=== PATIENT | female | born 1985 | race African-American/Black ===

== ENCOUNTER → 2020-02-04 13:01 | Outpatient (CLI) | payer OTHER, SELFPAY ==
--- NOTE | 2020-02-04 | DI.MRI.S_ITS ---
PROCEDURE: MR PELVIS WO CON INDICATIONS: Pelvic and perineal pain TECHNIQUE: Coronal HASTE, sagittal breath-hold T2 FSE; axial T1 FSE with and without fat saturation through the pelvis. Optional long- and short-axis uterine nonbreath-hold T2 FSE through the uterus. The patient declined to proceed with the contrast enhanced portion of the study. COMPARISON: None. FINDINGS: Image quality: Excellent. Uterus: Uterus is retroverted and is normal in size. Endometrium is normal in thickness. Junctional zone is normal in thickness at 12 mm or less. Adnexa: Both ovaries are normal in size, without suspicious solid lesions. Note is made of a fluid signal ovoid structure at the left adnexa, measuring up to 2.4 cm AP, 2.7 cm transverse and 3.8 cm craniocaudad. This contains 1 thin internal septation. Urinary system: Bladder wall is normal in thickness. Distal ureters are non distended. Urethra appears normal in morphology. Nodes and vessels: No pelvic or inguinal adenopathy by size criteria. Iliac vessels are normal in size. Bowel and peritoneum: No pathologic free pelvic fluid. Inferior colon and small bowel loops are normal in caliber. Soft tissues: No inguinal hernias. No findings of pelvic floor incompetence in the absence of provocation. Bones: Marrow demonstrates normal overall signal. IMPRESSION: A cystic structure is present at the left adnexa, likely ovarian in origin, with fluid signal character and a thin internal single septation. Overall this structure measures up to 2.4 x 2.7 x 3.8 cm. The uterus is retroflexed, no abnormal free fluid is seen. No internal or pelvic floor herniation is identified. Source of reported chronic pelvic pain is not found. Dictated by: Jose Alejandro Katz M.D. on 02/04/2020 at 14:24 Approved by: Jose Alejandro Katz M.D. on 02/04/2020 at 14:28
== END ==
PROVIDERS: Referring Provider Obstetrics & Gynecology; Visit Provider Obstetrics & Gynecology
DX: R10.2 Pelvic and perineal pain (principal)
CPT/HCPCS: 72195

== ENCOUNTER 2020-05-27 16:39 | Emergency (ER) | payer OTHER, SELFPAY ==
[2020-05-27 16:45] VITALS: BP 153/97; PULSE 98; RESP 16; TEMP 37; O2SAT 98; BMI 30.4
--- NOTE | 2020-05-27 16:51 | ED.GENADULT ---
HPI - General Adult General Chief complaint: Upper Respiratory Symptoms Stated complaint: states chronic sinus infection, post nasal drip Time Seen by Provider: 05/27/20 16:41 Source: patient Mode of arrival: Ambulatory Limitations: no limitations History of Present Illness HPI narrative: 35-year-old female who states she has a longstanding history of sinus issues here for evaluation of the start of her sinus pain. She states that it is worse when she is laying down. Has been taking [id number] decongestants. No fevers. Also has had a cough. States that normally she develops bronchitis when her symptoms progress worse and she is here trying to ?get ahead of the infection ? Related Data Previous Rx's Medication Instructions Recorded amoxicillin-pot clavulanate 1 tab PO BID 5 Days #10 tab 05/27/20 [Augmentin] Allergies Allergy/AdvReac Type Severity Reaction Status Date / Time tramadol [From Ultram] Allergy Severe Unconscious Verified 05/27/20 16:47 Review of Systems Constitutional Constitutional: Denies fever(s) and Denies headache(s) Eyes Eyes: Denies change in vision ENT Ears, Nose, Mouth, and Throat: Reports facial pain, Denies headache(s) and Reports sinus pressure Comments: Postnasal drip Cardiovascular Cardiovascular: Denies dyspnea Respiratory Respiratory: Denies dyspnea Integumentary/Breasts Skin/Breast: Denies lesions and Denies rash Neurologic Neurologic: Denies headache(s) Hematologic/Lymphatic Hematologic/Lymphatic: Denies easy bleeding and Denies easy bruising Patient History Medical History Healthy adult Social History Smoking Status: Never smoker Smoking Status: Never smoker Substance Use Type: does not use Exam Initial Vital Signs Initial Vital Signs: Vital Signs Temperature 98.6 F 05/27/20 16:45 Pulse Rate 98 H 05/27/20 16:45 Respiratory Rate 16 05/27/20 16:45 Blood Pressure 153/97 H 05/27/20 16:45 Pulse Oximetry 98 05/27/20 16:45 Const General: cooperative, comfortable and well developed Limitations: mental status not altered HENMT Ears: TM's normal bilaterally Nose: external nose normal Face and sinus: sinuses nontender Mouth: oral mucosae normal Resp Effort & Inspection: normal respiratory effort Auscultation: clear to auscultation bilaterally Cardio Rate: regular rate Skin Lesions: no lesions Rashes: no rashes Neuro General: patient alert and patient awake Cognition: normal cognition Speech: speech normal Extrem General: normal to inspection and capillary refill normal Psych Appearance: grossly normal and well kempt Course Vital Signs Vital signs: Vital Signs - 8 hr 05/27/20 16:45 Temperature 98.6 F Pulse Rate 98 H Respiratory Rate 16 Blood Pressure 153/97 H Pulse Oximetry 98 Medical Decision Making MDM Narrative Medical decision making narrative: Patient does have a benign exam. We did have a discussion that most likely sinus infections are not related to bacterial infections but are more likely related to either allergens or viruses. I did talk with patient that she should continue the [id number] decongestants. I gave her options regarding these. I did give her prescription for antibiotics however she was going to wait on filling this in taking it unless her symptoms worsen despite the decongestant use. She expressed understanding and agreement this plan. Discharge Plan Departure Patient Disposition: Home Clinical Impression: Congestion of nasal sinus Instructions: DI for Sinusitis, Amoxicillin Does Not Appear Effective for Acute Maxillary Sinusitis, Antihistamine/Decongestant (By mouth) Activity Restrictions/Additional Instructions: I do recommend that you continue with taking the antihistamines such as Claritin or Christine or Zyrtec. You can purchase the generic version of these medications. They can be purchased [id number]. Please take them on a daily basis as directed. I also recommend that you have take either Flonase or Nasonex. Again the generic version of these medicines is appropriate. You can also buy these [id number]. I recommend you take these for the next several days and if your symptoms are not improving then you can take the prescription for antibiotics as directed. Prescriptions: New amoxicillin-pot clavulanate [Augmentin] 875-125 mg tablet 1 tab PO BID 5 Days Qty: 10 RF: 0
[2020-05-27 16:59] VITALS: PULSE 86; RESP 16; O2SAT 98
== END 2020-05-27 16:59 | disposition home or self-care (01) ==
PROVIDERS: Emergency Provider Emergency Medicine
DX: R09.81 Nasal congestion (principal)
CPT/HCPCS: 99281

== ENCOUNTER → 2020-07-14 09:08 | Outpatient (CLI) | payer OTHER, SELFPAY ==
--- NOTE | 2020-07-14 | DI.MRI.S_ITS ---
PROCEDURE: MR HIP RT W CON INDICATIONS: RIGHT HIP PAIN TECHNIQUE: After the administration of 10 mL of dilute intra-articular Gadolinium contrast, coronal STIR of the bony pelvis; coronal and oblique axial T1 spin echo with fat saturation, axial T2 fast spin echo with fat saturation, sagittal T1 spin echo with and without fat saturation of the involved hip. COMPARISON: [facility], MR, MR PELVIS WO CON, 02/04/2020, 13:36. FINDINGS: Image quality: Excellent. Bones and joints: No fracture identified. Sacroiliac joints are unremarkable in signal intensity. There is lower lumbar spondylosis and facet arthropathy. No pathologic hip joint effusion. No evidence of osteonecrosis. Tendons and ligaments: The gluteus medius and minimus tendons appear intact, without associated muscle atrophy. There is minimal trochanteric edema Proximal iliotibial band intact. Iliopsoas tendon intact. Origin of the hamstring tendon intact. The straight and reflected heads of the rectus femoris muscle origin appear intact Ligamentum teres appears intact where visualized. Labrum: Labrum appears intact in the absence of intra-articular contrast. The alpha angle of the femur is within normal limits at less than 55 degrees. Soft tissues: Visualized muscles demonstrate normal bulk and internal signal. Quadratus femoris muscle normal. Proximal sciatic neurovascular bundle appears normal adjacent to the hamstring tendons. No free pelvic fluid. Bladder normal. Genitourinary structures and bowel loops appear normal where visualized. IMPRESSION: Minimal trochanteric edema No labral tear is seen. Elsewhere, no internal derangement identified. Dictated by: Miguelito Ferraro M.D. on 07/14/2020 at 10:52 Approved by: Miguelito Ferraro M.D. on 07/14/2020 at 11:32
--- NOTE | 2020-07-14 | DI.RAD.S_ITS ---
PROCEDURE: FL HIP INJECTION MR/CT RT INDICATIONS: RIGHT HIP PAIN TECHNIQUE: The indications, alternatives, benefits, risks, and complications of the procedure were explained to the patient. Written informed consent was obtained and placed in the chart. The hip was examined fluoroscopically with the legs fixed in slight internal rotation, and a site for needle placement chosen for entry into the hip joint from an anterior approach. Care was taken to locate the common femoral artery and vein beforehand. The skin was prepped and draped in a sterile fashion, and 1% Lidocaine infiltrated from skin down to joint capsule. A spinal needle was inserted into the joint, and a small amount of iodinated contrast media injected to confirm intra-articular placement of the needle tip. This was followed by approximately 10 mL dilute solution of a gadolinium containing MR contrast agent. The needle was removed and a dressing was applied. The patient was given postprocedural instructions and sent to the MR suite for imaging. COMPARISON: None. FINDINGS: A single fluoroscopic spot image demonstrates intra-articular location of injected iodinated contrast. IMPRESSION: Successful fluoroscopically guided administration of dilute Gadolinium solution into the hip joint for MR arthrogram. Dictated by: Miguelito Ferraro M.D. on 07/14/2020 at 10:50 Approved by: Miguelito Ferraro M.D. on 07/14/2020 at 10:51
== END ==
PROVIDERS: Referring Provider Orthopaedic Surgery; Visit Provider Orthopaedic Surgery
DX: M25.551 Pain in right hip (principal); M25.851 Other specified joint disorders, right hip
CPT/HCPCS: 27093; 73722; 77002

== ENCOUNTER 2020-09-17 04:49 | Emergency (ER) | payer OTHER, SELFPAY ==
[2020-09-17 05:59] VITALS: BP 164/93; PULSE 79; RESP 15; TEMP 36.8; O2SAT 92; BMI 31.8
--- NOTE | 2020-09-17 06:13 | ED_ITS ---
HPI - Headache General Chief Complaint: Headache Stated Complaint: migraine for 1 week Time Seen by Provider: 09/17/20 05:57 History of Present Illness HPI Narrative: 35-year-old woman with a history of hypertension and chronic migraine which she typically treats with Fioricet presents with migraine present for greater than a week. Associated with gradual onset, significant photophobia, nausea mild vomiting. She has been able to eat somewhat this week but has continued to have significant pain. She describes no nuchal rigidity, no fevers no sinus pressure congestion, no palpitations no chest pain no abdominal pain no dysuria or diarrhea or constipation. She describes the heada keeley as this point involving her entire head focused behind her eyes. She has had no recent trauma and she does have an appointment with a neurologist set up the 4 days from now. Related Data Allergies Allergy/AdvReac Type Severity Reaction Status Date / Time tramadol [From Ultram] Allergy Severe Unconscious Verified 05/27/20 16:47 Review of Systems Review of Systems Narrative: Remainder of review of systems including constitutional, ENT, cardiovascular, respiratory, GI, , musculoskeletal, skin, neurologic and psychiatric systems reviewed and are unremarkable except as noted in HPI. Patient History Medical History Hypertension Migraines Social History Smoking Status: Never smoker Smoking Status: Never smoker Substance Use Type: does not use Exam Narrative Exam Narrative: General: Cooperative in obvious distress with eyes covered HEENT: Moist mucous membranes, normal sclera with reactive pupils, Neck: , supple, no cervical adenopathy Respiratory: Lungs are clear to auscultation, no wheezing no rales no rhonchi. Full and symmetrical air movement Cardiac: Regular rate and rhythm no murmurs no bruits Abdomen: Soft, nontender, good bowel tones, no flank pain Skin: Warm and dry, no rashes Neurologic: Grossly neurologically intact with no obvious asymmetries or abnormalities Extremities: No trauma, well perfused Psych: Cooperative, appropriate insight and affect Initial Vital Signs Initial Vital Signs: Vital Signs Temperature 98.3 F 09/17/20 05:59 Pulse Rate 79 09/17/20 05:59 Respiratory Rate 15 09/17/20 05:59 Blood Pressure 164/93 H 09/17/20 05:59 Pulse Oximetry 92 09/17/20 05:59 Course Orders Ordered: Discontinued Medications Dexamethasone (Dexamethasone 10 Mg/Ml Vial) 10 mg IV NOW ONE Stop: 09/17/20 06:12 Last Admin: 09/17/20 06:21 Dose: 10 mg Documented by: ESTER Diphenhydramine HCl (Diphenhydramine 50 Mg/Ml Vial) 25 mg IV NOW ONE Stop: 09/17/20 06:12 Last Admin: 09/17/20 06:20 Dose: 25 mg Documented by: ESTER Sodium Chloride (Normal Saline 0.9%) 1,000 mls @ 1,000 mls/hr IV BOLUS ONE Stop: 09/17/20 07:10 Last Admin: 09/17/20 06:20 Dose: 1,000 mls/hr Documented by: ESTER Ketorolac Tromethamine (Ketorolac 60 Mg/2 Ml Vial) 15 mg IV NOW ONE Stop: 09/17/20 06:12 Last Admin: 09/17/20 06:21 Dose: 15 mg Documented by: ESTER Metoclopramide HCl (Metoclopramide 10 Mg/2 Ml Inj) 10 mg IV NOW ONE Stop: 09/17/20 06:12 Last Admin: 09/17/20 06:21 Dose: 10 mg Documented by: ESTER Vital Signs Vital signs: Vital Signs - 8 hr 09/17/20 05:59 Temperature 98.3 F Pulse Rate 79 Respiratory Rate 15 Blood Pressure 164/93 H Pulse Oximetry 92 [facility] - Headache Medical Records Attestation: I reviewed the patient's medical records. Lab Data Attestation: I reviewed the patient's lab results. [facility] Narrative Medical decision making narrative: Patient is re-evaluated. After fluids, Toradol, Decadron, Benadryl, Reglan headache is significantly improved. At this point there is no evidence for any outside explanation to explain her headache pain, no evidence of infection, mass, bleed or trauma. She is safe for home discharge. Discharge Plan Departure Patient Disposition: Home Clinical Impression: Migraines Qualifiers: Migraine type: unspecified Status migrainosus presence: without status migrainosus Intractability: not intractable Qualified Code(s): G43.909 - Migraine, unspecified, not intractable, without status migrainosus Instructions: DI for Migraine Activity Restrictions/Additional Instructions: Thank you for coming in. Your given combination of IV fluid, Toradol, Reglan, Benadryl and Decadron to help control your headache. I am glad it was successful for you I hope you are able to get some sleep this evening. I wish you the best with keeping your neurology appointment to discuss headache prevention later this week.
[2020-09-17] MEDS: diphenhydrAMINE 50 MG/ML VIAL 25 MG IV (06:20)
[2020-09-17] MEDS: SODIUM CHLORIDE 0.9% 1,000 ML 1000 ML IV (06:20)
[2020-09-17] MEDS: KETOROLAC 60 MG/2 ML VIAL 15 MG IV (06:21)
[2020-09-17] MEDS: METOCLOPRAMIDE 10 MG/2 ML INJ IV (06:21)
[2020-09-17] MEDS: DEXAMETHASONE 10 MG/ML VIAL IV (06:21)
[2020-09-17 07:59] VITALS: BP 164/93; PULSE 73; RESP 15; O2SAT 97
== END 2020-09-17 07:59 | disposition home or self-care (01) ==
PROVIDERS: Emergency Provider Emergency Medicine
DX: G43.909 Migraine, unspecified, not intractable, without status migrainosus (principal); R11.2 Nausea with vomiting, unspecified
CPT/HCPCS: 36415; 96361; 96374; 96375; 99281; 99284; J1100; J1200; J1885; J2765